=== PATIENT | male | born 1985 | race Caucasian/White ===

== ENCOUNTER 2017-04-06 11:50 | Emergency (ER) | payer MEDICAID, OTHER ==
[~2017-04-06] VITALS: Ht 182.9 cm; Wt 91.0 kg
[2017-04-06 11:51] VITALS: BP 58/81; PULSE 66; RESP 16; TEMP 98.5; O2SAT 97
[2017-04-06 12:02] VITALS: BP 165/94; PULSE 66
--- NOTE | 2017-04-06 13:56 | PD ---
HPI Chief Complaint: Medication Refill Request Time Seen by Provider: 13:55 Travel History International Travel<30 days: No Contact w/Intl Traveler<30days: No Traveled to known affect area: No History of Present Illness HPI 32-year-old male presents emergency department requesting refill on his oxycodone for his back pain. He says his primary care provider will not refill his pain medication and told him to come to the ER. He has a follow-up appointment with pain management. He says neurosurgery will not do surgery on his back because he needs cardiac clearance. He denies encopresis, incontinence , saddle anesthesias. Denies paresthesias, loss of sensation, decreased range of motion, decreased strength to bilateral lower extremities. Reports pain radiates down both of his legs. Denies IV drug use or cancer. Denies fever, vomiting. He has no other medical complaints. No known allergies. No other modifying factors or associated signs and symptoms. History Social History Alcohol Use: No Tobacco Use: No Allergies-Medications (Allergen,Severity, Reaction): Coded Allergies: No Known Allergies (Verified , 04/06/17) Reported Meds & Prescriptions Reported Meds & Active Scripts Active No Active Prescriptions or Reported Medications Review of Systems Except as stated in HPI: all other systems reviewed are Neg Physical Exam Narrative GENERAL: Well-nourished, well-developed male patient, in no acute distress SKIN: Warm and dry. HEAD: Atraumatic. Normocephalic. EYES: Pupils equal and round. No scleral icterus. No injection or drainage. ENT: Mucosa pink and moist. Airway patent. NECK: Trachea midline. CARDIOVASCULAR: Regular rate. RESPIRATORY: No accessory muscle use. GASTROINTESTINAL: Flat. MUSCULOSKELETAL: No obvious deformities. No clubbing. No cyanosis. No edema. Ambulatory with a normal gait. NEUROLOGICAL: Awake and alert. Oriented 3. No obvious cranial nerve deficits. Motor grossly within normal limits. Normal speech. PSYCHIATRIC: Appropriate mood and affect; insight and judgment normal. Data Data Last Documented VS Vital Signs Date Time Temp Pulse Resp B/P (MAP) Pulse Ox O2 Delivery O2 Flow Rate FiO2 04/06/17 12:02 66 165/94 (117) 04/06/17 11:51 98.5 16 97 Room Air MDM Medical Screen Exam Complete: Yes Emergency Medical Condition: No Differential Diagnosis Medication refill, narcotic seeking, pain management Narrative Course 32-year-old male requesting medication refill for oxycodone for back pain. Vital signs are stable and the patient is stable for outpatient follow-up and treatment. The patient has no urgent or emergent medical complaints. There is no emergent or urgent medical need at this time. I instructed the patient to follow up with their primary care provider. A medical screening exam was performed: At the time of evaluation the presenting medical condition was determined not to be of an emergent nature. The patient was given the option of receiving additional care, but declined. Patient was given options for additional community resources from which to obtain care. The Patient Has Been advised to seek medical attention for their presenting complaint. The patient has been advised to return to the ER at any time if an emergent condition develops. Primary Impression: Encounter for medical screening examination Scripts No Active Prescriptions or Reported Meds Condition: Stable Shelbi Arteaga Apr 06, 2017 13:56
[2017-04-06 14:01] VITALS: BP 168/93
[2017-05-18] MEDS ORDERED: PERC10TA27 PO (14:34)
[2017-05-18] MEDS ORDERED: METH500T3 PO (14:34)
== END 2017-04-06 14:03 | disposition left against medical advice (07) ==
LOC: NEPK 11:50
DX: Z76.0 Encounter for issue of repeat prescription (principal)
CPT/HCPCS: 99281